=== PATIENT | female | born 1970 | race Two or more races ===

== ENCOUNTER 2019-01-04 05:12 | Inpatient (IN) | payer BC ==
[~2019-01-04] VITALS: Ht 152.4 cm; Wt 70.8 kg
--- NOTE | 2019-01-04 05:45 | NUR ---
ADMISSION NOTES: PT ADMITTED FOR DAY SURGERY, PROCEDURE: TOTAL ABDOMINAL HYSTERECTOMY BY DR CISNEROS. PT A/O X4, CAME TO THE UNIT, AMBULATORY, CONTINENT, DENIES ANY PAIN OR DISCOMFORT. VS TAKEN AND RECORDED. KEPT COMFORTABLE, SKIN ASSESSMENT PERFORMED. AT BED SIDE. PT S/P D&C 2 WEEKS AGO, LAST MENSTRUAL PERIOD 12/31/18. CONSENT FOR PROCEDURE NOT SIGNED BY PT, STATED SHE WOULD LIKE TO CLARIFY WITH MD ABOUT THE PROCEDURE SHE WAS TOLD THAT HER OVARIES WILL NOT BE REMOVE, STATED SHE WILL SIGN LATER ONCE SHE SPEAK WITH SURGEON. ANESTHESIA AND BLOOD CONSENT SIGNED BY PT. ORIENTED TO UNIT POLICY AND HOURLY ROUNDING, USE OF CALL LIGHT SYSTEM. ROYAL MASTERSON NOTIFIED O.R, WAS TOLD TO CALL BACK AGAIN AT 0630AM. SAFETY PRECAUTIONS FOR FALL INITIATED, CALL LIGHT IN REACH, WILL CONTINUE MONITORING PT.
[2019-01-04 06:23] VITALS: BP 127/86
--- NOTE | 2019-01-04 06:30 | NUR ---
rn notes: hedis registered nurse rn [facility] contacted [facility], to ask for pre op orders, and labs, per OR they will just insert those copy in the paper works when they shredder picker the pt.
--- NOTE | 2019-01-04 06:55 | NUR ---
RN NOTES: CONTACTED OR, SPOKED WITH KELLIE, INFORMED ABOUT PT REQUEST TO SPEAK WITH THE SURGEON PRIOR TO SIGNING CONSENT FOR PROCEDURE. PER KELLIE, JUST PUT THE CONSENT IN FRONT OF THE CHART, AND THEY WILL AIR CONDITIONING SUPERVISOR PT SOON
[2019-01-04] MEDS ORDERED: ANESTHESIA TRAY IN PYXIS 1 EA TRAY MC ONE (06:56)
--- NOTE | 2019-01-04 07:01 | NUR ---
rn closing notes: pt in OR, will endorse to day rn for continuity of care
--- NOTE | 2019-01-04 07:01 | NUR ---
rn notes: or came to pickling operator pt
[2019-01-04] MEDS ORDERED: MIDAZOLAM HCL 2 MG/2ML VIAL ONE (07:30)
[2019-01-04] MEDS ORDERED: FENTANYL PF 100MCG/2ML AMPUL ONE ×2 (07:30→09:46)
[2019-01-04] MEDS ORDERED: ROCURONIUM BROMIDE 50 MG/5 ML ONE ×2 (07:30→09:09)
--- NOTE | 2019-01-04 07:30 | NUR ---
PATIENT IN OR FOR SURGERY. WILL CARRY OUT ORDERS AND CONTINUE TO MONITOR SOON PATIENT IS BACK IN THE UNIT.
[2019-01-04 07:52] LABS: BASOPHILS % (AUTO) 0.7 % (0.0-2.0); EOSINOPHILS % (AUTO) 3.4 % (0.0-6.0); HEMATOCRIT 39 % (33-45); HEMOGLOBIN 12.9 g/dL (11.5-14.8); LYMPHOCYTES % (AUTO) 32.4 % (20.0-44.0); MEAN CORPUSCULAR HGB CONC 33 g/dl (31.0-36.0); MEAN CORPUSCULAR VOLUME 84 fL (82-100); MONOCYTES # (AUTO) 0.4 /CMM (0.1-1.30); MONOCYTES % (AUTO) 6.9 % (2.0-12.0); NEUTROPHILS # (AUTO) 3.5 /CMM (1.8-8.9); NEUTROPHILS % (AUTO) 56.6 % (43.0-81.0); PLATELET COUNT (AUTO) 255 /CMM (150-450); RED BLOOD CELL COUNT(AUTO) 4.64 MIL/uL (4.0-5.2); WHITE BLOOD COUNT (AUTO) 6.2 K/uL (4.3-11.0)
[2019-01-04 07:57] LABS: CALCIUM, SERUM 8.9 mg/dL (8.5-10.1); CREATININE 0.6 mg/dL (0.6-1.3)
[2019-01-04] MEDS ORDERED: BUPIVACAINE 0.5 % PF 150 MG/30 ML VIAL ONE (09:51)
[2019-01-04] MEDS ORDERED: KETOROLAC TROMETHAMINE INJ 30 MG/ML VIAL ONE (10:33)
[2019-01-04] MEDS ORDERED: HYDROMORPHONE 1 MG/1 ML DISP.SYRIN ONE (10:40)
[2019-01-04 11:20] VITALS: BP 113/60
--- NOTE | 2019-01-04 11:30 | NUR ---
MS RN NOTE RECEIVED PATIENT FROM OR. IN STABLE CONDITION. AWAKE, ALERT AND ORIENTED X4. ON ROOM AIR, TOLERATING WELL. VITAL SIGNS STABLE. IN NO APPARENT DISTRESS OR DISCOMFORT AT THIS TIME. RESPIRATIONS EVEN AND UNLABORED. REPORTS 5/10 PAIN IN ABDOMINAL/SURGICAL AREA. PATIENT IS ABLE TO COMMUNICATE NEEDS. CRISOSTOMO CATHETER IN PLACE, DRAINING CLEAR YELLOW URINE. LEFT HAND 22G IVC SL, PATENT AND INTACT. PATIENT WAS MADE COMFORTABLE IN BED. SAFETY MEASURES IN PLACE, BED IN LOW LOCKED POSITION, SIDE RAILS UP X2, CALL LIGHT WITHIN EASY REACH. POST OPERATIVE ORDERS IN THE CHART. WILL INPUT IN THE SYSTEM AND ANDREA OUT ACCORDINGLY. WILL CONTINUE TO MONITOR AT THIS TIME
[2019-01-04] MEDS ORDERED: METF-440 PO (11:32)
[2019-01-04] MEDS ORDERED: LISI1TAB11 PO (11:32)
[2019-01-04] MEDS ORDERED: PANT40TA2 PO (11:32)
[2019-01-04] MEDS ORDERED: FERR325T23 PO (11:32)
[2019-01-04 12:00] VITALS: BP 113/60
[2019-01-04] MEDS ORDERED: TYLENOL 650 MG TABLET PO PRN (12:00)
[2019-01-04] MEDS: KETOROLAC TROMETHAMINE INJ 30 MG/ML VIAL IV SCH ×2 (12:00→21:12)
[2019-01-04] MEDS ORDERED: COLACE 100 MG CAPSULE PO PRN (12:00)
[2019-01-04] MEDS: MORPHINE SULFATE INJ 10 MG/ML DISP.SYRIN IV PRN ×2 (15:11→19:03)
[2019-01-04] MEDS: ANCEF 1 G in IV D5W 50 ML IV SCH (15:11)
[2019-01-04 16:00] VITALS: BP 110/55
--- NOTE | 2019-01-04 18:00 | NUR ---
RECEIVED TELEPHONE ORDER FROM DR. CISNEROS TO START PATIENT ON IV D5LR AT 125ML/HR. NOTED AND CARRIED OUT.
[2019-01-04] MEDS: IV D5 LR 1,000 ML IV PRN (19:03)
--- NOTE | 2019-01-04 19:40 | NUR ---
RN NOTES RECEIVED PATIENT IN BED. ALERT ORIENTED X4. ON ROOM AIR TOLERATING WELL. IN NO APPARENT DISTRESS OR DISCOMFORT AT THIS TIME. RESPIRATION EVEN AND UNLABORED. NO FEVER OR CHILLS NOTED. DENIES ANY PAIN AT THIS TIME, PATIENT IS ABLE TO VERBALIZE NEEDS. CRISOSTOMO CATHETER IN PLACE, DRAINING CLEAR YELLOW URINE. SURGICAL DRESSING INTACT WITH MINIMAL DRAINAGE. RIGHT HAND PERIPHERAL IV 22G WITH D5 LR RUNNING AT 125ML/HR PER DR. CISNEROS'S ORDER.KEPT CLEAN AND COMFORTABLE. ALL NEEDS ATTENDED, INCENTIVE SPIROMETER ENCOURAGED EVERY HOUR. SCD PUMPS IN PLACED. SAFETY MEASURES IN PLACED, BED IN LOW LOCKED POSITION, SIDE RAILS UP X2, CALL LIGHT WITHIN EASY REACH. WILL MONITOR ACCORDINGLY.
--- NOTE | 2019-01-04 19:42 | NUR ---
MS RN CLOSING NOTE PATIENT IN BED. ALERT ORIENTED X4. ON ROOM AIR TOLERATING WELL. IN NO APPARENT DISTRESS OR DISCOMFORT AT THIS TIME. RESPIRATION EVEN AND UNLABORED. NO FEVER OR CHILLS NOTED. PAIN IS CONTROLLED. PATIENT IS ABLE TO VERBALIZE NEEDS. VITAL SIGNS WNL. CRISOSTOMO CATHETER IN PLACE, DRAINING CLEAR YELLOW URINE. SURGICAL DRESSING INTACT WITH MINIMAL DRAINAGE. RIGHT RIGHT HAND IVC 22G WITH D5 LR RUNNING AT 125ML/HR PER DR. CISNEROS'S ORDER. PATIENT KEPT CLEAN AND COMFORTABLE. ALL NEEDS ATTENDED, ORDERS RENDERED. INCENTIVE SPIROMETER ENCOURAGED EVERY HOUR. SCD PUMPS IN PLACE. SAFETY MEASURES IN PLACE, BED IN LOW LOCKED POSITION, SIDE RAILS UP X2, CALL LIGHT WITHIN EASY REACH. WILL ENDORSE TO PM NURSE FOR KAI.
[2019-01-05] MEDS: ANCEF 1 G in IV D5W 50 ML IV SCH ×3 (00:16→16:14)
[2019-01-05] MEDS: IV D5 LR 1,000 ML IV PRN (03:41)
[2019-01-05] MEDS: MORPHINE SULFATE INJ 10 MG/ML DISP.SYRIN IV PRN (03:42)
[2019-01-05 06:24] LABS: HEMOGLOBIN 10.8 g/dL (11.5-14.8)
--- NOTE | 2019-01-05 07:05 | NUR ---
RN NOTES PATIENT IN BED. ALERT ORIENTED X4. ON ROOM AIR TOLERATING WELL. IN NO APPARENT DISTRESS OR DISCOMFORT AT THIS TIME. RESPIRATION EVEN AND UNLABORED. NO FEVER OR CHILLS NOTED. DENIES ANY PAIN AT THIS TIME, PATIENT IS ABLE TO VERBALIZE NEEDS. CRISOSTOMO CATHETER IN PLACE, DRAINING CLEAR YELLOW URINE. SURGICAL DRESSING INTACT WITH MINIMAL DRAINAGE. RIGHT HAND PERIPHERAL IV 22G WITH D5 LR RUNNING AT 125ML/HR PER DR. CISNEROS'S ORDER.KEPT CLEAN AND COMFORTABLE. ALL NEEDS ATTENDED, INCENTIVE SPIROMETER ENCOURAGED EVERY HOUR. SCD PUMPS IN PLACED. SAFETY MEASURES IN PLACED, BED IN LOW LOCKED POSITION, SIDE RAILS UP X2, CALL LIGHT WITHIN EASY REACH. WILL ENDORSE TO AM NURSE FOR CONTINUITY OF CARE.
--- NOTE | 2019-01-05 07:10 | NUR ---
MS RN NOTES PATIENT IN BED ALERT ORIENTED X 4. NO ACUTE DISTRESS NOTED. BREATHING UNLABORED. NO SOB NOTED. DENIED ANY PAIN AT TIME. IV ACCESS PATENT AND INTACT, NO REDNESS OR SWELLING NOTED.CRISOSTOMO CATHETER INTACT DRAINING WELL. SAFETY MEASURES IN PLACE, CALL LIGHT WITHIN REACH. WILL CONTINUE TO MONITOR ACCORDINGLY.
[2019-01-05 08:00] VITALS: BP 104/63
[2019-01-05] MEDS: KETOROLAC TROMETHAMINE INJ 30 MG/ML VIAL IV SCH ×2 (09:05→20:49)
--- NOTE | 2019-01-05 10:09 | NUR ---
MS RN NOTES RECEIVED NEW ORDERS FROM DR CRISTÓBAL CISNEROS FOR TYLENOL-CODEINE #3, CHANGE DIET TO FULL LIQUID, AND PATIENT UP FROM BED TO CHAIR, NOTED AND CARRIED OUT.
--- NOTE | 2019-01-05 10:15 | NUR ---
MS RN NOTES CRISOSTOMO CATHETER REMOVED WITH 800 CC CLEAR YELLOW URINE OUTPUT. PATIENT TOLERATED WELL.
--- NOTE | 2019-01-05 11:00 | NUR ---
MS RN NOTES PATIENT VOIDED 450CC CLEAR YELLOW URINE. WILL CONTINUE TO MONITOR.
--- NOTE | 2019-01-05 11:11 | NUR ---
MS RN NOTES SEEN AND EVALUATED BY DR CRISTÓBAL CISNEROS WITH NEW ORDER MADE TO DECREASE CURRENT IVF TO 50CC/HR, CHANGE DIET TO CARDIAC CCHO AND IV HEPLOCK WHEN TOLERATING PO, NOTED AND CARRIED OUT.
[2019-01-05 16:00] VITALS: BP 128/73
[2019-01-05] MEDS: ACETAMINOPHEN W/ CODEINE#3 1 EA TABLET PO PRN (16:14)
--- NOTE | 2019-01-05 19:00 | NUR ---
MS RN NOTES PATIENT IN BED ALERT ORIENTED X4. NO ACUTE DISTRESS NOTED. BREATHING UNLABORED. NO SOB NOTED. DENIED ANY PAIN AT TIME. IV ACCESS PATENT AND INTACT, NO REDNESS OR SWELLING NOTED. DUE MEDICATIONS GIVEN, NO ASE NOTED. TOLERATING CURRENT DIET WELL. NO URINARY RETENTION NOTED. NEEDS ATTENDED AND ANTICIPATED. KEPT CLEAN DRY AND COMFORTABLE. SAFETY MEASURES IN PLACE, CALL LIGHT WITHIN REACH. ENDORSED TO NIGHT NURSE FOR CONTINUITY OF CARE.
--- NOTE | 2019-01-05 19:36 | NUR ---
RN OPENING NOTES RECEIVED PATIENT AWAKE, RESTING IN BED. A/O X 4. NO SIGNS OF RESPIRATORY DISTRESS. DENIES SHORTNESS OF BREATH. DENIES PAIN AT THIS TIME. IV SITE PATENT AND INTACT. SAFETY PRECAUTIONS IMPLEMENTED. CALL LIGHT WITHIN REACH. WILL CONTINUE TO MONITOR PATIENT THROUGHOUT THE SHIFT.
[2019-01-05 20:00] VITALS: BP 134/67
[2019-01-05 20:21] VITALS: BP 134/67
[2019-01-06] MEDS: ACETAMINOPHEN W/ CODEINE#3 1 EA TABLET PO PRN (06:27)
--- NOTE | 2019-01-06 06:38 | NUR ---
RN CLOSING NOTES PATIENT IS AWAKE, RESTING IN BED, COMFORTABLY. PATIENT HAS NO SIGNS OF RESPIRATORY DISTRESS. NO SIGNS OF SHORTNESS OF BREATH. PATIENT HAS NO SIGNS OF FACIAL GRIMACING. INCISION SITE SHOWS NO SIGNS OF ACTIVE BLEEDING OR INFECTION. PATIENT HAS PAIN LEVEL AT 6 AROUND ABDOMEN AREA, TYLENOL #3 GIVEN. ALL NEEDS ATTENDED TO. SAFETY PRECAUTIONS IMPLEMENTED. CALL LIGHT WITHIN REACH. WILL ENDORSE TO ONCOMING AM RN.
--- NOTE | 2019-01-06 07:30 | NUR ---
RECEIVED PT. IN AM ALERT AND ORIENTED X3-4. NO COMPLAINTS,UP AMB. IN RM.
[2019-01-06 08:00] VITALS: BP 121/65
[2019-01-06] MEDS: KETOROLAC TROMETHAMINE INJ 30 MG/ML VIAL IV SCH (09:30)
--- NOTE | 2019-01-06 10:30 | NUR ---
DR. CISNEROS CALLING IN GIVING ORDERS.
--- NOTE | 2019-01-06 12:40 | NUR ---
ABD. INCISION DRY AND INTACT.SPOUSE HERE.GIVEN ALL DC INSTRUCTIONS.HEP LOCK OUT. PT. HAD PREVIOUSLY BEEN GIVEN RXS.BELONGING SHEET SIGNED.ESCORTED TO LOBBY BY PODIATRY PROFESSOR AND SPOUSE IN W/C.
== END 2019-01-06 12:30 | disposition home or self-care (01) | DRG 743 ==
LOC: DS 05:12 → MED 05:41
PROVIDERS: ADMIT Obstetrics & Gynecology; ATTEND Obstetrics & Gynecology
DX: D25.1 Intramural leiomyoma of uterus (principal); I10 Essential (primary) hypertension; K66.0 Peritoneal adhesions (postprocedural) (postinfection); N92.1 Excessive and frequent menstruation with irregular cycle; D25.0 Submucous leiomyoma of uterus
CPT/HCPCS: 36415; 80048-TC; 82962-TC; 84702-TC; 84703-TC; 85025-TC; 85027-TC; 86850-TC; 87081-TC; 88307-TC; A6402; G0378; J0690; J1170; J1885; J2250; J2270; J2405; J2704; J2710; J3010; J3490; J7050; J7060